=== PATIENT | male | born 1940 | race Caucasian/White ===

== ENCOUNTER 2016-11-01 10:37 | Emergency (ER) | payer MEDICARE, OTHER ==
[2016-11-01 11:17] LABS: BASOPHIL 0.5 % (0-2); EOSINOPHIL 7.7 % (0-7); HCT 41.5 % (42.0-52.0); HGB 14.3 g/dl (13.2-18.0); LYMPHOCYTE 18.7 % (15-48); MCH 31.7 pg (25.0-31.0); MCHC 34.5 g/dL (32.0-36.0); MPV 10.6 fL (6.0-9.5); NEUTROPHIL 63.1 % (41-80); PLT 204 K/uL (150-400); RBC 4.51 M/uL (4.70-6.00); RDW 13.9 % (11.5-14.0); WBC 10.6 K/uL (4.0-10.5)
[2016-11-01 11:49] LABS: CREATININE 0.9 mg/dL (0.7-1.2); POTASSIUM 4.2 mmol/L (3.5-5.1)
== END 2016-11-01 12:52 | disposition home or self-care (01) ==
LOC: FER 10:37
PROVIDERS: Emergency Medicine
DX: H81.11 Benign paroxysmal vertigo, right ear (principal); H91.91 Unspecified hearing loss, right ear; I11.9 Hypertensive heart disease without heart failure; I48.91 Unspecified atrial fibrillation; E78.5 Hyperlipidemia, unspecified; F17.210 Nicotine dependence, cigarettes, uncomplicated; Z88.5 Allergy status to narcotic agent; Z79.01 Long term (current) use of anticoagulants; Z79.899 Other long term (current) drug therapy; Z95.1 Presence of aortocoronary bypass graft
CPT/HCPCS: 36415; 80048; 85025; 93005